=== PATIENT | female | born 1970 | race African-American/Black ===

== ENCOUNTER 2016-06-21 08:04 | Emergency (ER) | payer BC, OTHER ==
[2016-06-21] MEDS ORDERED: KETOROLAC 60 MG/2 ML VIAL IM STA (08:52)
--- NOTE | 2016-06-21 08:56 | ED ---
General Adult HPI - General Chief complaint: Neck Pain/Injury Stated complaint: POSS PINCHED NERVE Time Seen by Provider: 06/21/16 08:44 Source: patient, RN notes reviewed Mode of arrival: ambulatory Limitations: no limitations - History of Present Illness Initial comments: Patient 46-year-old female who presents emergency room today with a chief complaint of left-sided neck and shoulder pain 6 days. Patient does admit that she woke up Thursday morning with the symptoms. States feels better when she rotates her neck to the left. States she's been feeling pain in the left trapezius area. She does admit that it's worse with certain movements of her neck and left shoulder. Denies any injury or trauma. Does admit that she followed the family doctor was prescribed ibuprofen and Flexeril. She states having little effect of the symptoms. She states she's also been trying heat to the area with little relief. Patient denies any other complaints associated symptoms. Denies any radiculopathy. Patient denies any recent fever, chills, shortness of breath, chest pain, back pain, abdominal pain, nausea or vomiting, numbness or tingling, dysuria or hematuria, constipation or diarrhea, headaches or visual changes, or any other complaints. - Related Data Home Medications Medication Instructions Recorded Confirmed metFORMIN HCL [Glucophage] 1,000 mg PO BID 12/05/13 06/21/16 Ibuprofen [Motrin] 600 mg PO Q8HR PRN 11/01/14 06/21/16 Atorvastatin [Lipitor] 80 mg PO HS 10/31/15 06/21/16 Latanoprost Ophth [Xalatan 0.005%] 1 drops BOTH EYES HS 10/31/15 06/21/16 glipiZIDE [Glucotrol] 10 mg PO AC-BRKFST 10/31/15 06/21/16 Cyclobenzaprine [Flexeril] 10 mg PO TID 06/21/16 06/21/16 Previous Rx's Medication Instructions Recorded Baclofen [Lioresal] 5 mg PO TID #20 tablet 06/21/16 Hydrocodone/Acetaminophen [Mcfaddin 1 each PO Q6HR PRN #20 tab 06/21/16 5-325] Allergies Allergy/AdvReac Type Severity Reaction Status Date / Time latex Allergy Rash/Hives Verified 06/21/16 08:10 Penicillins Allergy Rash/Hives Verified 06/21/16 08:10 Review of Systems ROS Statement: Those systems with pertinent positive or pertinent negative responses have been documented in the HPI. ROS Other: All systems not noted in ROS Statement are negative. Past Medical History Past Medical History: Diabetes Mellitus, Eye Disorder, Hypertension, Osteoarthritis (OA) Additional Past Medical History / Comment(s): glaucoma, hx. colitis, scoliosis, neuropathy, doesn't take anything for hypertension History of Any Multi-Drug Resistant Organisms: None Reported Past Surgical History: Hysterectomy Additional Past Surgical History / Comment(s): ovarian cysts removed hemmorriodectomy 11/02/[address] yuliet pham surgical Past Anesthesia/Blood Transfusion Reactions: No Reported Reaction Past Psychological History: No Psychological Hx Reported Smoking Status: Never smoker Past Alcohol Use History: None Reported Past Drug Use History: None Reported - Past Family History Mother Family Medical History: No Reported History General Exam - General Exam Comments Initial Comments: General: The patient is awake and alert, in no distress, and does not appear acutely ill. Eye: Pupils are equal, round and reactive to light, extra-ocular movements are intact. No nystagmus. There is normal conjunctiva bilaterally. No signs of icterus. Ears, nose, mouth and throat: There are moist mucous membranes and no oral lesions. Neck: The neck is supple, there is no tenderness or JVD. Cardiovascular: There is a regular rate and rhythm. No murmur, rub or gallop is appreciated. Respiratory: Lungs are clear to auscultation, respirations are non-labored, breath sounds are equal. No wheezes, stridor, rales, or rhonchi. Musculoskeletal: Normal appearance of cervical, thoracic, lumbar spine. No step -offs or deformities appreciated. Patient has no tenderness over the spinous processes. Patient does have paravertebral tenderness minimal on the left side of cervical spine. Increased tenderness down into the trapezius.. Strength 5/ 5. Sensation intact. Pulses equal bilaterally 2+. Neurological: A&O x 3. CN II-XII intact, There are no obvious motor or sensory deficits. Coordination appears grossly intact. Speech is normal. Skin: Skin is warm and dry and no rashes or lesions are noted. Psychiatric: Cooperative, appropriate mood & affect, normal judgment. Limitations: no limitations Course Vital Signs 01/07/17 08:05 Temperature 97.5 F L Pulse Rate 79 Respiratory 16 Rate Blood Pressure 177/91 O2 Sat by Pulse 100 Oximetry Medical Decision Making - Medical Decision Making Patient did drive herself here to the hospital presenting for a left sided neck and shoulder pain. Patient's pain and symptoms reproducible on palpation and consistent with muscle spasm. Options discussed with patient about treatment here. She did drive herself. Will be discharged home after Toradol injection in the emergency room. Patient will be given a prescription for a different muscle relaxer along with a few pills of Mcfaddin for her pain and advised follow- up the family doctor if symptoms persist. Patient advised return if any symptoms increase or worsen. Disposition Clinical Impression: Muscle spasm Disposition: HOME SELF-CARE Condition: Good Instructions: Muscle Spasm (ED) Additional Instructions: Please be aware that medications may make you drowsy. Please follow-up the family doctor over the next 2 days symptoms are unimproved. Please return to emergency room if any symptoms increase or worsen or for any other concerns. Prescriptions: Baclofen [Lioresal] 5 mg PO TID #20 tablet Hydrocodone/Acetaminophen [Mcfaddin 5-325] 1 each PO Q6HR PRN #20 tab PRN Reason: Pain Time of Disposition: 08:55
[2016-06-21 09:14] VITALS: BP 142/81; PULSE 68; RESP 18; TEMP 97.8
== END 2016-06-21 09:16 | disposition home or self-care (01) ==
LOC: EC 08:04
DX: M62.838 Other muscle spasm (principal); E11.40 Type 2 diabetes mellitus with diabetic neuropathy, unspecified; M19.90 Unspecified osteoarthritis, unspecified site; H40.9 Unspecified glaucoma; Z79.899 Other long term (current) drug therapy; Z79.84 Long term (current) use of oral hypoglycemic drugs; Z88.0 Allergy status to penicillin; Z91.040 Latex allergy status; I10 Essential (primary) hypertension
CPT/HCPCS: 96372; 99283; J1885

== ENCOUNTER → 2016-06-26 | Outpatient (CLI) | payer BC, OTHER ==
--- NOTE | 2016-06-26 12:34 | XR ---
Bilateral knees HISTORY: Knee pain 3 views of both knees are submitted on a total of 5 images No comparisons Marginal spurring is present at the medial compartments with joint space loss. Alignment and bone min eralization are maintained. No sizable joint effusion. Spurring also present at the patellofemoral benson ints. IMPRESSION: Osteoarthritis.
== END | disposition home or self-care (01) ==
LOC: RADXRMAIN 08:51
PROVIDERS: ATTEND Nurse Practitioner Family
DX: M17.0 Bilateral primary osteoarthritis of knee (principal)

== ENCOUNTER 2016-09-15 18:42 | Emergency (ER) | payer BC, OTHER ==
[2016-09-15 18:47] VITALS: BP 189/96; PULSE 90; RESP 18; TEMP 97.8
--- NOTE | 2016-09-15 19:07 | ED ---
General Adult HPI - General Chief complaint: Extremity Injury, Upper Stated complaint: finger pain, [facility] Time Seen by Provider: 09/15/16 18:54 Source: patient, RN notes reviewed Mode of arrival: ambulatory Limitations: no limitations - History of Present Illness Initial comments: This is a 46-year-old female who presents with right index finger pain. Patient states she hit the right index finger on a steel martinez yesterday. Patient states the pain has gradually gotten worse. Patient denies any numbness /tingling or weakness. Patient states it's hard to bend the right index finger. Patient has noticed some swelling to the tip of the right index finger. Patient denies any recent fever, chills, shortness breath, chest pain, abdominal pain, nausea/vomiting/diarrhea, back pain, hematuria, headache, or visual changes, or any other complaints. - Related Data Home Medications Medication Instructions Recorded Confirmed metFORMIN HCL [Glucophage] 1,000 mg PO BID 12/05/13 06/21/16 Atorvastatin [Lipitor] 80 mg PO HS 10/31/15 06/21/16 Latanoprost Ophth [Xalatan 0.005%] 1 drops BOTH EYES HS 10/31/15 06/21/16 Cyclobenzaprine [Flexeril] 10 mg PO TID 06/21/16 06/21/16 Glimepiride [Amaryl] 4 mg PO DAILY 09/15/16 09/15/16 Hydrocodone/Acetaminophen [[place] 1 tab PO Q6HR PRN 09/15/16 09/15/16 5-325] Naproxen 500 mg PO BID PRN 09/15/16 09/15/16 Allergies Allergy/AdvReac Type Severity Reaction Status Date / Time latex Allergy Rash/Hives Verified 09/15/16 19:25 Penicillins Allergy Rash/Hives Verified 09/15/16 19:25 Review of Systems ROS Statement: Those systems with pertinent positive or pertinent negative responses have been documented in the HPI. ROS Other: All systems not noted in ROS Statement are negative. Past Medical History Past Medical History: Diabetes Mellitus, Eye Disorder, Hypertension, Osteoarthritis (OA) Additional Past Medical History / Comment(s): glaucoma, hx. colitis, scoliosis, neuropathy, doesn't take anything for hypertension History of Any Multi-Drug Resistant Organisms: None Reported Past Surgical History: Hysterectomy Additional Past Surgical History / Comment(s): ovarian cysts removed hemmorriodectomy 11/02/[address] yuliet pham surgical Past Anesthesia/Blood Transfusion Reactions: No Reported Reaction Past Psychological History: No Psychological Hx Reported Smoking Status: Never smoker Past Alcohol Use History: None Reported Past Drug Use History: None Reported - Past Family History Mother Family Medical History: No Reported History General Exam - General Exam Comments Initial Comments: General: The patient is awake and alert, in no distress, and does not appear acutely ill. Neck: The neck is supple, there is no tenderness or JVD. Cardiovascular: There is a regular rate and rhythm. No murmur, rub or gallop is appreciated. Respiratory: Lungs are clear to auscultation, respirations are non-labored, breath sounds are equal. No wheezes, stridor, rales, or rhonchi. Musculoskeletal: There is tenderness to palpation over the medial aspect of the distal phalanx of the second digit of the right hand. There is some mild erythema and swelling to this area. There is no subungual hematoma. Patient has limited range of motion of the right index finger due to pain. Strength is 5/5 and Sensation intact. Radial pulses 2+ bilaterally and capillary refill is normal at less than 2 seconds. Neurological: A&O x 3. CN II-XII intact, There are no obvious motor or sensory deficits. Coordination appears grossly intact. Speech is normal. Skin: Mild erythema and swelling at the tip of the right second digit. Skin is warm and dry and no rashes or lesions are noted. Psychiatric: Normal mood and affect. Limitations: no limitations Course Vital Signs 09/15/16 18:44 Temperature 97.8 F Pulse Rate 90 Respiratory 18 Rate Blood Pressure 189/96 O2 Sat by Pulse 99 Oximetry Medical Decision Making - Medical Decision Making This is a 46-year-old female who presents with right index finger pain. On physical exam patient is well-appearing. There is tenderness to palpation over the medial aspect of the distal phalanx of the second digit of the right hand. There is some mild erythema and swelling to this area. There is no subungual hematoma. Patient has limited range of motion of the right index finger due to pain. Strength is 5/5 and Sensation intact. Radial pulses 2+ bilaterally and capillary refill is normal at less than 2 seconds. X-ray of the right hand is done and reviewed showing: Negative right hand exam. Minor spurring noted at the IP joints. Report by Dr. Tamez. I discussed finger contusion. I discussed rest, ice, elevate and use Tylenol and Motrin for any pain. I discussed occult fracture. I discussed return parameters.Discussed that patient should follow up with PCP in one to 2 days or return to the [facility] for any worsening symptoms or for any further concerns. Patient was receptive to this plan and patient will be discharged home. Disposition Clinical Impression: Pain in finger Disposition: HOME SELF-CARE Condition: Good Instructions: Finger Sprain (ED) Additional Instructions: Please rest, ice, elevate and use Tylenol and Motrin for any pain. If symptoms do not improve in the next 7 days repeat x-rays may be needed to rule out occult fracture. Please follow-up with family doctor in the next 2 days of symptoms have not improved. Please return to emergency room if the symptoms increase or worsen or for any other concerns. Referrals: Loki Willis DO [Primary Care Provider] - 1-2 days Time of Disposition: 19:55
--- NOTE | 2016-09-15 19:43 | XR ---
EXAMINATION TYPE: XR hand complete RT DATE OF EXAM: 09/15/2016 7:18 PM COMPARISON: NONE HISTORY: Pain TECHNIQUE: 3 views FINDINGS: I see no fracture nor dislocation. Metacarpals are intact. There are no erosions. IMPRESSION: Negative right hand exam. Minor spurring noted at the IP joints.
== END 2016-09-15 20:16 | disposition home or self-care (01) ==
LOC: EC 18:42
DX: M79.644 Pain in right finger(s) (principal); I10 Essential (primary) hypertension; M19.90 Unspecified osteoarthritis, unspecified site; E11.40 Type 2 diabetes mellitus with diabetic neuropathy, unspecified; M41.9 Scoliosis, unspecified; Z79.84 Long term (current) use of oral hypoglycemic drugs; Z79.899 Other long term (current) drug therapy; Z88.0 Allergy status to penicillin; Z91.040 Latex allergy status; W22.8XXA Striking against or struck by other objects, initial encounter; Y99.0 Civilian activity done for income or pay
CPT/HCPCS: 99283

== ENCOUNTER 2016-12-25 01:21 | Emergency (ER) | payer OTHER, BC ==
[2016-12-25 01:28] VITALS: PULSE 64; RESP 18; TEMP 97.6
[2016-12-25 01:36] VITALS: BP 180/87
--- NOTE | 2016-12-25 01:42 | ED ---
Lower Extremity Injury HPI - General Chief Complaint: Extremity Injury, Lower Stated Complaint: Foot Injury-[facility] Time Seen by Provider: 12/25/16 01:33 Source: patient, RN notes reviewed Mode of arrival: ambulatory Limitations: no limitations - History of Present Illness Initial Comments: 46-year-old female presents to the emergency department with a chief complaint of right foot pain. Patient states the car dropped down on to her foot at work today. Since she's had numbness and tingling to her toe. Patient has noticed some bruising around the first digit so she was concerned. Patient states there is no pain is just numbness. Patient denies any other injuries from the incident.Patient denies any recent fever, chills, shortness of breath, chest pain, back pain, abdominal pain, nausea vomiting, numbness or tingling, dysuria or hematuria, constipation or diarrhea, headaches or visual changes, or any other current symptoms. - Related Data Home Medications Medication Instructions Recorded Confirmed metFORMIN HCL [Glucophage] 1,000 mg PO BID 12/05/13 12/25/16 Atorvastatin [Lipitor] 80 mg PO HS 10/31/15 12/25/16 Latanoprost Ophth [Xalatan 0.005%] 1 drops BOTH EYES HS 10/31/15 12/25/16 Cyclobenzaprine [Flexeril] 10 mg PO TID PRN 06/21/16 12/25/16 Naproxen 500 mg PO BID PRN 09/15/16 12/25/16 Allergies Allergy/AdvReac Type Severity Reaction Status Date / Time latex Allergy Rash/Hives Verified 12/25/16 01:28 Penicillins Allergy Rash/Hives Verified 12/25/16 01:28 Review of Systems ROS Statement: Those systems with pertinent positive or pertinent negative responses have been documented in the HPI. ROS Other: All systems not noted in ROS Statement are negative. Past Medical History Past Medical History: Diabetes Mellitus, Eye Disorder, Hypertension, Osteoarthritis (OA) Additional Past Medical History / Comment(s): glaucoma, hx. colitis, scoliosis, neuropathy, doesn't take anything for hypertension History of Any Multi-Drug Resistant Organisms: None Reported Past Surgical History: Hysterectomy Additional Past Surgical History / Comment(s): ovarian cysts removed hemmorriodectomy 11/02/[address] yuliet pham surgical Past Anesthesia/Blood Transfusion Reactions: No Reported Reaction Past Psychological History: No Psychological Hx Reported Smoking Status: Never smoker Past Alcohol Use History: None Reported Past Drug Use History: None Reported - Past Family History Mother Family Medical History: No Reported History General Exam - General Exam Comments Initial Comments: General: The patient is awake and alert, in no distress, and does not appear acutely ill. Neck: The neck is supple, there is no tenderness. Cardiovascular: There is a regular rate and rhythm. No murmur, rub or gallop is appreciated. Respiratory: Lungs are clear to auscultation, respirations are non-labored, breath sounds are equal. No wheezes, stridor, rales, or rhonchi. Musculoskeletal: Sensation intact with 2+ pulses throughout right extremity. Fund motion of the right ankle and right foot. Patient does appear to have mild ecchymosis at the base of the first digit of the right foot. Full range of motion normal strength. Neurological: CN II-XII intact, There are no obvious motor or sensory deficits. Coordination appears grossly intact. Speech is normal. Skin: Skin is warm and dry and no rashes or lesions are noted. Psychiatric: Normal mood and affect. Limitations: no limitations Course Vital Signs 12/25/16 01:26 Temperature 97.6 F Pulse Rate 64 Respiratory 18 Rate Blood Pressure 180/87 O2 Sat by Pulse 100 Oximetry Medical Decision Making - Medical Decision Making 46-year-old female presents emergency Department chief complaint of right foot numbness and pain after injury. This and x-rays reviewed and negative. This and we discussed patient most likely has a right bone contusion. We discussed follow-up we discussed return parameters all questions. Patient stated that she understood and she is given plan. She will be discharged. - Radiology Data Radiology results: report reviewed, image reviewed Disposition Clinical Impression: Contusion of right foot Disposition: HOME SELF-CARE Condition: Stable Instructions: Foot Contusion (ED) Additional Instructions: Please use medication as discussed. Please follow up with family doctor if symptoms have not improved over the next two days. Please return to the emergency room if your symptoms increase or worsen or for any other concerns. Referrals: Loki Willis DO [Primary Care Provider] - 1-2 days Time of Disposition: 02:27
[2016-12-25] MEDS ORDERED: IBUPROFEN 600 MG TAB PO STA (01:56)
--- NOTE | 2016-12-25 02:25 | XR ---
EXAM: XR Right Foot Complete, 3 or More Views CLINICAL HISTORY: Reason: Pain TECHNIQUE: Frontal, lateral and oblique views of the right foot. COMPARISON: None. FINDINGS: Bones/joints: Mild degenerative changes are seen, particularly involving the first metatarsal-phalangeal joint and the first tarsometatarsal joint. Mild/moderate calcaneal spur is seen. No acute fracture. No dislocation. Soft tissues: Minimal soft tissue swelling is suspected overlying the anterior forefoot. No radiopaque foreign body. IMPRESSION: No radiographic evidence of acute osseous injury. Mild degenerative changes.
== END 2016-12-25 02:39 | disposition home or self-care (01) ==
LOC: EC 01:21
DX: S90.31XA Contusion of right foot, initial encounter (principal); E11.9 Type 2 diabetes mellitus without complications; I10 Essential (primary) hypertension; Z79.84 Long term (current) use of oral hypoglycemic drugs; Z79.899 Other long term (current) drug therapy; Z88.0 Allergy status to penicillin; Z91.040 Latex allergy status; W20.8XXA Other cause of strike by thrown, projected or falling object, initial encounter; Y92.69 Other specified industrial and construction area as the place of occurrence of the external cause; Y99.0 Civilian activity done for income or pay
CPT/HCPCS: 99283

== ENCOUNTER → 2017-01-19 | Outpatient (CLI) | payer OTHER ==
--- NOTE | 2017-01-19 17:31 | XR ---
EXAMINATION TYPE: XR ankle complete RT DATE OF EXAM: 01/19/2017 CLINICAL HISTORY: Right foot pain after crushing injury TECHNIQUE: Frontal, lateral and oblique images of the right ankle are obtained. COMPARISON: 12/12/2013 FINDINGS: There is no acute fracture/dislocation evident in the right ankle. The ankle mortise appe ars within normal limits. The overlying soft tissues demonstrate diffuse soft tissue swelling. No benson int effusion.. Infracalcaneal heel spur is seen. IMPRESSION: There is no acute fracture or dislocation in the right ankle. Soft tissue swelling over the ankle joint with no effusion.
--- NOTE | 2017-01-19 17:34 | XR ---
EXAMINATION TYPE: XR foot complete RT DATE OF EXAM: 01/19/2017 CLINICAL HISTORY: Foot pain after crushing injury 3 weeks ago TECHNIQUE: Frontal, lateral, and oblique images of the right foot are obtained. COMPARISON: 12/25/2016 FINDINGS: There is no acute fracture/dislocation evident in the right foot. Degenerative changes are appreciated of the first metatarsophalangeal joint, mild in degree as well as the first tarsometatar chavez joint. Infracalcaneal heel spur is again noted. Osteophytes project from the distal phalanx and i nterphalangeal joint space narrowing is also seen at the fifth distal interphalangeal joint. No radio paque foreign body. The overlying soft tissue appears unremarkable. IMPRESSION: There is no acute fracture or dislocation in the right foot.
== END | disposition home or self-care (01) ==
LOC: RADXRMAIN 17:02
PROVIDERS: ATTEND Emergency Medicine
DX: M79.89 Other specified soft tissue disorders (principal); S97.81XD Crushing injury of right foot, subsequent encounter

== ENCOUNTER → 2017-11-26 | Outpatient (CLI) | payer OTHER ==
--- NOTE | 2017-11-26 14:21 | XR ---
Thoracic spine HISTORY: Back pain 3 views of the thoracic spine There is a dextroscoliosis centered at T9. Thoracic vertebral bodies show preserved height and bone m ineralization. There is multilevel spondylosis. Loss of disc height present at mid thoracic intervert ebral levels. No evident paraspinal mass. IMPRESSION: Scoliosis and degenerative disc disease.
--- NOTE | 2017-11-26 14:23 | XR ---
Lumbar spine HISTORY: Back pain 3 views of the lumbar spine correlated to prior lumbar spine 05/26/2017 and thoracic spine 11/26/2017 Compensatory curve present at the thoracic lumbar junction is present as on prior exam. Lumbar verteb ral bodies show stable height, alignment, and bone mineralization. Disc spaces are maintained. Mild s pondylosis is again noted. Sclerosis present in the posterior elements of the lower lumbar spine. IMPRESSION: Scoliosis, degenerative disease and facet arthropathy. Stable findings.
== END | disposition home or self-care (01) ==
LOC: RADXRMAIN 08:25
PROVIDERS: ATTEND Family Medicine
DX: M51.34 Other intervertebral disc degeneration, thoracic region (principal); M47.816 Spondylosis without myelopathy or radiculopathy, lumbar region; M46.96 Unspecified inflammatory spondylopathy, lumbar region; M41.9 Scoliosis, unspecified
CPT/HCPCS: 72070; 72100

== ENCOUNTER → 2018-03-05 | Outpatient (CLI) | payer OTHER ==
--- NOTE | 2018-03-05 11:47 | P.STRESS ---
- Stress Test Note Stress Test Results/Findings: Exam Performed: stress test Exam Date: 03/05/18 Reason for Exam: CHEST PAIN Height: 5 ft 4 in Weight: 93.44 kg Protocol: ALLYSON Stage: 2 Duration of Exercise: 5:00 Resting Heart Rate: 86 Resting Blood Pressure: 138/83 Maximum Achieved Heart Rate: 170 Maximum Achieved Blood Pressure: 207/75 85% PMHR: 145 100% PMHR: 170 METS: 7.0 Technologist Comment: Stress Test Results/Findings: This is a 48-year-old female being evaluated for symptoms of chest pain. Patient has hypertension, diabetes and hypercholesterolemia and also family history the baseline EKG showed a sinus rhythm with normal KS interval and QRS duration. Blood pressure at rest is 138/83 with pulse rate of 86. Patient walked on the Allyson protocol for 5 minutes achieving a maximal rate of 170 with blood pressure 207/75. EKGs taken during and after the exercise did not reveal any significant changes from baseline. Final impression #1: Negative stress test #2. Patient did not express any chest pain #3. No arrhythmias detected.
--- NOTE | 2018-03-05 15:48 | EST ---
Stress Test Results/Findings: Exam Performed: stress test Exam Date: 03/05/18 Reason for Exam: CHEST PAIN Height: 5 ft 4 in Weight: 93.44 kg Protocol: ALYLSON Stage: 2 Duration of Exercise: 5:00 Resting Heart Rate: 86 Resting Blood Pressure: 138/83 Maximum Achieved Heart Rate: 170 Maximum Achieved Blood Pressure: 207/75 85% PMHR: 145 100% PMHR: 170 METS: 7.0 Technologist Comment: Stress Test Results/Findings: This is a 48-year-old female being evaluated for symptoms of chest pain. Patient has hypertension, diabetes and hypercholesterolemia and also family history the baseline EKG showed a sinus rhythm with normal IA interval and QRS duration. Blood pressure at rest is 138/83 with pulse rate of 86. Patient walked on the Allyson protocol for 5 minutes achieving a maximal rate of 170 with blood pressure 207/75. EKGs taken during and after the exercise did not reveal any significant changes from baseline. Final impression #1: Negative stress test #2. Patient did not express any chest pain #3. No arrhythmias detected. SHEKHAR
== END ==
LOC: RADNMMAIN 10:48
PROVIDERS: ATTEND Family Medicine
DX: R07.89 Other chest pain (principal)
CPT/HCPCS: 93017

== ENCOUNTER → 2018-04-07 | Outpatient (CLI) | payer OTHER ==
--- NOTE | 2018-04-08 10:49 | MM ---
Reason for exam: screening (asymptomatic). Last mammogram was performed 7 years and 7 months ago. History: Family history of breast cancer in paternal aunt at age 50. Took hormonal contraceptives for 2 years. Physical Findings: A clinical breast exam by your physician is recommended on an annual basis and results should be correlated with mammographic findings. MG Screening Mammo w CAD Bilateral CC and MLO view(s) were taken. Prior study comparison: September 19, 2010, CAD bilateral diagnostic mammogram. The breast tissue is heterogeneously dense. This may lower the sensitivity of mammography. There is a benign right breast oil cyst. No suspicious abnormality. No significant changes when compared with prior studies. ASSESSMENT: Benign, BI-RAD 2 RECOMMENDATION: Routine screening mammogram of both breasts in 1 year.
== END | disposition home or self-care (01) ==
LOC: RADMAMWWP 10:53
PROVIDERS: ATTEND Family Medicine
DX: Z12.31 Encounter for screening mammogram for malignant neoplasm of breast (principal)
CPT/HCPCS: 77067

== ENCOUNTER → 2018-05-07 | Outpatient (CLI) | payer OTHER ==
--- NOTE | 2018-05-09 12:13 | MR ---
EXAMINATION TYPE: MR lumbar spine wo con DATE OF EXAM: 05/07/2018 9:05 PM COMPARISON: NONE HISTORY: Low back pain Multiplanar, MultiSpin echo imaging of the lumbar spine was performed. L1-L2: Normal disc appearance without desiccation. No herniation, protrusion or disc bulging. No ca nal stenosis is present. Foramina are patent bilaterally. L2-L3: Normal disc appearance without desiccation. No herniation, protrusion or disc bulging. No ca nal stenosis is present. Foramina are patent bilaterally. L3-L4: Normal disc appearance without desiccation. No herniation, protrusion or disc bulging. No ca nal stenosis is present. Foramina are patent bilaterally. L4-L5: Normal disc appearance without desiccation. No herniation, protrusion or disc bulging. No ca nal stenosis is present. Foramina are patent bilaterally. L5-S1: Normal disc appearance without desiccation. No herniation, protrusion or disc bulging. No ca nal stenosis is present. Foramina are patent bilaterally. Lumbar segments are intact. No paraspinal masses are identified. Conus medullaris has a normal appe arance. IMPRESSION: 1. No significant abnormality appreciated.
== END | disposition home or self-care (01) ==
LOC: RADMRIMAIN 20:35
PROVIDERS: ATTEND Family Medicine
DX: M54.5 Low back pain (principal)
CPT/HCPCS: 72148

== ENCOUNTER → 2018-05-14 | Outpatient (CLI) | payer OTHER ==
--- NOTE | 2018-05-14 09:52 | XR ---
EXAMINATION TYPE: XR sacrum coccyx DATE OF EXAM: 05/14/2018 COMPARISON: NONE HISTORY: Pain Three views are submitted. Sacrum is intact. SI joints are symmetric. Coccyx appears to be intact. Visualized pelvic structures intact. Calcifications in the pelvis are likely vascular. Arthropathy of the hips noted. SI joints symmetric. Facet arthropathy lower lumbar spine. IMPRESSION: 1. No acute process. If symptoms persist consider MRI..
== END | disposition home or self-care (01) ==
LOC: RADXRMAIN 09:27
PROVIDERS: ATTEND Family Medicine
DX: M53.3 Sacrococcygeal disorders, not elsewhere classified (principal); G89.29 Other chronic pain
CPT/HCPCS: 72220

== ENCOUNTER → 2019-02-24 | Outpatient (CLI) | payer OTHER ==
--- NOTE | 2019-02-24 15:58 | XR ---
Left shoulder HISTORY: Left shoulder pain 3 views of the left shoulder Bone mineralization, joint spaces and alignment are maintained. Left lung apex as visualized is aristeo l. IMPRESSION: No fracture or dislocation.
== END | disposition home or self-care (01) ==
LOC: RADXRMAIN 13:50
PROVIDERS: ATTEND Family Medicine
DX: M25.512 Pain in left shoulder (principal)

== ENCOUNTER 2019-06-12 08:26 | Emergency (ER) | payer OTHER ==
[2019-06-12 08:31] VITALS: TEMP 97.7
[2019-06-12] MEDS ORDERED: SODIUM CHLORIDE 0.9% 1,000 ML IV ONE (09:02)
[2019-06-12] MEDS ORDERED: SODIUM CHLORIDE 0.9% 1,000 ML IV SCH (09:15)
[2019-06-12 09:59] LABS: ALT 18 U/L (4-34); AST 21 U/L (14-36); African American GFR (CKD) >90 (>60 ml/min/1.73 sqM); Albumin 4.3 g/dL (3.5-5.0); Alkaline Phosphatase 90 U/L (38-126); Anion Gap 7 mmol/L; Blood Urea Nitrogen 12 mg/dL (7-17); Calcium 9.9 mg/dL (8.4-10.2); Carbon Dioxide 28 mmol/L (22-30); Chloride 105 mmol/L (98-107); Glucose 169 mg/dL (74-99); Magnesium 1.9 mg/dL (1.6-2.3); Non-African American GFR(CKD) 88 (>60 ml/min/1.73 sqM); Phosphorus 4.2 mg/dL (2.5-4.5); Potassium 4.6 mmol/L (3.5-5.1); Sodium 140 mmol/L (137-145); Total Bilirubin 0.3 mg/dL (0.2-1.3); Total Protein 7.7 g/dL (6.3-8.2)
[2019-06-12 10:00] LABS: Basophils # (A) 0.1 k/uL (0-0.2); Basophils % (A) 1 %; Eosinophils # (A) 0.5 k/uL (0-0.7); Eosinophils % (A) 5 %; Lymphocytes # (A) 3.2 k/uL (1.0-4.8); Lymphocytes % (A) 37 %; MCH 25.1 pg (25.0-35.0); MCHC 32.5 g/dL (31.0-37.0); MCV 77.4 fL (80.0-100.0); Mean Platelet Volume 7.1; Monocytes # (A) 0.4 k/uL (0-1.0); Monocytes % (A) 4 %; Neutrophils # (A) 4.4 k/uL (1.3-7.7); Neutrophils % (A) 51 %; Platelet Count 313 k/uL (150-450); RBC 5.17 m/uL (3.80-5.40); WBC 8.6 k/uL (3.8-10.6)
[2019-06-12 10:03] LABS: Glucose,Whole Blood 161 mg/dL (75-99)
[2019-06-12 10:22] VITALS: RESP 20
--- NOTE | 2019-06-12 10:26 | ED ---
Recheck HPI - General Chief Complaint: Recheck/Abnormal Lab/Rx Stated Complaint: hyperglycemia Time Seen by Provider: 06/12/19 08:48 Source: patient Mode of arrival: ambulatory Limitations: no limitations - History of Present Illness Initial Comments: 49-year-old female presenting today for chief complaint of elevated blood glucose. Patient states the past 3 weeks she has had elevated blood glucose. Patient states that she had run out of her toes 3 weeks ago and states that her blood glucose was turning upward she states 2 weeks ago that was was started again. Patient was also taking metformin. Patient denies being insulin- dependent. Patient states she got a new glucometer which keeps reading as greater than 400. Patient states she is unsure if this is cracked. Patient denies any increased urination she denies any shortness of breath abdominal pain nausea vomiting patient denies any other symptoms patient does not take blood pressure medications prior to arrival and has no current complaints aside from noting elevation of blood glucose - Related Data Home Medications Medication Instructions Recorded Confirmed metFORMIN HCL [Glucophage] 1,000 mg PO BID 12/05/13 05/21/17 Latanoprost Ophth [Xalatan 0.005%] 1 drops BOTH EYES HS 10/31/15 05/21/17 Naproxen 500 mg PO BID PRN 09/15/16 05/21/17 Glimepiride [Amaryl] 4 mg PO DAILY 05/21/17 05/21/17 Lisinopril [Zestril] 5 mg PO DAILY 05/21/17 05/21/17 Allergies Allergy/AdvReac Type Severity Reaction Status Date / Time latex Allergy Rash/Hives Verified 06/12/19 08:32 Penicillins Allergy Rash/Hives Verified 06/12/19 08:32 Review of Systems ROS Statement: Those systems with pertinent positive or pertinent negative responses have been documented in the HPI. ROS Other: All systems not noted in ROS Statement are negative. Past Medical History Past Medical History: Diabetes Mellitus, Eye Disorder, Hypertension, Osteoarthritis (OA) Additional Past Medical History / Comment(s): glaucoma, hx. colitis, scoliosis, neuropathy, doesn't take anything for hypertension History of Any Multi-Drug Resistant Organisms: None Reported Past Surgical History: Hysterectomy Additional Past Surgical History / Comment(s): ovarian cysts removed hemmorriodectomy 11/02/[address] yuliet pham surgical Past Anesthesia/Blood Transfusion Reactions: No Reported Reaction Past Psychological History: No Psychological Hx Reported Smoking Status: Never smoker Past Alcohol Use History: None Reported Past Drug Use History: None Reported - Past Family History Mother Family Medical History: No Reported History General Exam - General Exam Comments Initial Comments: General: The patient is awake and alert, in no distress, and does not appear acutely ill. Eye: Pupils are equal, round and reactive to light, extra-ocular movements are intact. No nystagmus. There is normal conjunctiva bilaterally. No signs of icterus. Ears, nose, mouth and throat: There are moist mucous membranes and no oral lesions. Neck: The neck is supple, there is no tenderness or JVD. Cardiovascular: There is a regular rate and rhythm. No murmur, rub or gallop is appreciated. Respiratory: Lungs are clear to auscultation, respirations are non-labored, breath sounds are equal. No wheezes, stridor, rales, or rhonchi. Gastrointestinal: Soft, non-distended, non-tender abdomen without masses or organomegaly noted. There is no rebound or guarding present. Musculoskeletal: Normal ROM, no tenderness. Strength 5/5. Sensation intact. Pulses equal bilaterally 2+. Neurological: A&O x 3. CN II-XII intact grossly, There are no obvious motor or sensory deficits. Coordination appears grossly intact. Speech is normal. Skin: Skin is warm and dry and no rashes or lesions are noted. Psychiatric: Cooperative, appropriate mood & affect, normal judgment. Limitations: no limitations Course Vital Signs 06/12/19 06/12/19 06/12/19 08:28 08:31 09:31 Temperature 97.7 F Pulse Rate 88 62 Respiratory 18 20 20 Rate Blood Pressure 186/103 125/86 O2 Sat by Pulse 98 98 Oximetry 06/12/19 06/12/19 10:00 10:48 Temperature Pulse Rate 61 70 Respiratory 20 20 Rate Blood Pressure 139/82 135/82 O2 Sat by Pulse 98 98 Oximetry Medical Decision Making - Medical Decision Making 49-year-old female presenting today for chief complaint of elevated blood glucose. Patient's blood glucose 161. Patient given IV hydration. Patient otherwise appears well acetone negative no anion gap trace ketones. I feel she is stable for discharge with outpatient primary care follow-up for further management of hyperglycemia. Patient is agreeable this care plan and states she is going to go home and compare her glucometer with a different one to make sure that this is correct readings. Otherwise patient is no complaint of focalized symptoms and was discharged from the hospital appearing well after discussing case with Dr. Farrell. - Lab Data Result diagrams: 06/12/19 09:20 06/12/19 09:20 Lab Results 06/12/19 06/12/19 06/12/19 Range/Units 09:20 09:20 10:00 WBC 8.6 (3.8-10.6) k/uL RBC 5.17 (3.80-5.40) m/uL Hgb 13.0 (11.4-16.0) gm/dL Hct 40.0 (34.0-46.0) % MCV 77.4 L (80.0-100.0) fL MCH 25.1 (25.0-35.0) pg MCHC 32.5 (31.0-37.0) g/dL RDW 14.0 (11.5-15.5) % Plt Count 313 (150-450) k/uL Neutrophils % 51 % Lymphocytes % 37 % Monocytes % 4 % Eosinophils % 5 % Basophils % 1 % Neutrophils # 4.4 (1.3-7.7) k/uL Lymphocytes # 3.2 (1.0-4.8) k/uL Monocytes # 0.4 (0-1.0) k/uL Eosinophils # 0.5 (0-0.7) k/uL Basophils # 0.1 (0-0.2) k/uL Sodium 140 (137-145) mmol/L Potassium 4.6 (3.5-5.1) mmol/L Chloride 105 (98-107) mmol/L Carbon Dioxide 28 (22-30) mmol/L Anion Gap 7 mmol/L BUN 12 (7-17) mg/dL Creatinine 0.79 (0.52-1.04) mg/dL Est GFR (CKD-EPI)AfAm >90 (>60 ml/min/1.73 sqM) Est GFR (CKD-EPI)NonAf 88 (>60 ml/min/1.73 sqM) Glucose 169 H (74-99) mg/dL POC Glucose (mg/dL) 161 H (75-99) mg/dL POC Glu [employer] ID September Calcium 9.9 (8.4-10.2) mg/dL Phosphorus 4.2 (2.5-4.5) mg/dL Magnesium 1.9 (1.6-2.3) mg/dL Total Bilirubin 0.3 (0.2-1.3) mg/dL AST 21 (14-36) U/L ALT 18 (4-34) U/L Alkaline Phosphatase 90 (38-126) U/L Total Protein 7.7 (6.3-8.2) g/dL Albumin 4.3 (3.5-5.0) g/dL Acetone, Qual Negative (Negative) Disposition Clinical Impression: Hyperglycemia Disposition: HOME SELF-CARE Condition: Good Instructions (If sedation given, give patient instructions): Diabetic Hyperglycemia (ED) Additional Instructions: Please use medication as discussed. Please follow-up with family doctor in the next 2 days. Please return to emergency room if the symptoms increase or worsen or for any other concerns. Is patient prescribed a controlled substance at d/c from ED?: No Referrals: Loki Willis DO [Primary Care Provider] - 1-2 days Time of Disposition: 10:26
[2019-06-12 10:50] VITALS: BP 135/82; PULSE 70
== END 2019-06-12 10:52 | disposition home or self-care (01) ==
LOC: EC 08:26
DX: E11.65 Type 2 diabetes mellitus with hyperglycemia (principal); E11.40 Type 2 diabetes mellitus with diabetic neuropathy, unspecified; I10 Essential (primary) hypertension; Z79.84 Long term (current) use of oral hypoglycemic drugs; Z79.899 Other long term (current) drug therapy; Z88.0 Allergy status to penicillin; Z91.040 Latex allergy status
CPT/HCPCS: 36415; 80053; 82009; 83735; 84100; 85025; 96360; 99283